=== PATIENT | male | born 1955 | race Hispanic/Latino ===

== ENCOUNTER 2019-10-08 06:20 | Outpatient (CLI) | payer BC ==
[2019-10-08 10:17] LABS: #Lymphocytes 1.6 thou/uL (1.20-3.40); #Neutrophils 3.9 thou/uL (1.40-6.50); %Basophils 0.4 % (0.0-1.0); %Eosinophils 4.6 % (0.0-10.0); %Lymphocytes 25.7 % (21.0-51.0); %Monocytes 8.6 % (0.0-10.0); %Neutrophils 60.7 % (42.0-75.0); Hemoglobin 15.6 g/dL (14.0-18.0); Manual Diff?? NO; Mean Corpuscular HGB CONC 33.7 g/dL (32.0-36.0); Mean Corpuscular Hemoglobin 30.7 pg (27.0-31.0); Mean Corpuscular Volume 90.9 fL (78.0-98.0); Platelet Count 173 thou/uL (130-400); RBC Distribution Width 12.1 % (11.5-14.5); Red Blood Cell (RBC) Count 5.08 mill/uL (4.70-6.10); White Blood Cell (WBC) Count 6.4 thou/uL (4.8-10.8)
[2019-10-08 10:18] LABS: #Eosinphils 0.3 thou/uL (0.0-0.7); #Monocytes 0.5 thou/uL (0.11-0.59)
[2019-10-08 11:11] LABS: Albumin 4.5 g/dL (3.4-4.8)
[2019-10-08 11:12] LABS: Chloride 105 mmol/L (98-107); Potassium 3.9 mmol/L (3.5-5.1); Sodium 139 mmol/L (136-145)
[2019-10-08 11:13] LABS: Calcium 9.3 mg/dL (7.8-10.44)
[2019-10-08 11:14] LABS: Globulin 2.6 g/dL (2.4-3.5); Glucose 97 mg/dL (80-115); Protein, Total 7.1 g/dL (5.8-8.1)
[2019-10-08 11:15] LABS: Anion Gap 7 mmol/L (10-20); Bilirubin, Total 0.5 mg/dL (0.2-1.2); Carbon Dioxide 31 mmol/L (23-31)
[2019-10-08 11:17] LABS: Alkaline Phosphatase 61 U/L (40-110); Calc. Creatinine Clearance 0 mL/min (70-130); Estimated GFR-MDRD 86
[2019-10-08 11:18] LABS: BUN (Urea Nitrogen) 18 mg/dL (8.4-25.7)
[2019-10-08 11:19] LABS: AST (SGOT) 24 U/L (5-34)
[2019-10-08 11:20] LABS: ALT (SGPT) 36 U/L (8-55)
--- NOTE | 2019-10-09 14:09 | EKG ---
Test Reason : Blood Pressure : / mmHG Vent. Rate : 060 BPM Atrial Rate : 060 BPM P-R Int : 176 ms QRS Dur : 090 ms QT Int : 432 ms P-R-T Axes : 049 051 060 degrees QTc Int : 432 ms Normal sinus rhythm Normal ECG Confirmed by HUMERA WRIGHT, DR. Aguilar ([id number]) on 10/09/2019 2:09:00 PM Referred By: MARC Confirmed By:DR. Lauren GRUBBS MD
== END 2019-10-08 06:21 | disposition home or self-care (01) ==
LOC: LABBT 06:20
PROVIDERS: ATTEND Surgery
DX: Z01.818 Encounter for other preprocedural examination (principal); K43.2 Incisional hernia without obstruction or gangrene
CPT/HCPCS: 80053; 85025; 93005; 93010

== ENCOUNTER 2019-10-09 09:50 | Inpatient (IN) | payer BC ==
[2019-10-08 09:16] VITALS: BMI 28.1
[2019-10-09] MEDS ORDERED: diphenhydrAMINE 50 MG/ML VIAL ONE (10:14)
[2019-10-09] MEDS ORDERED: PROPOFOL 200 MG/20 ML VIAL ONE (10:14)
[2019-10-09] MEDS ORDERED: Rocuronium Bromide 10 MG/ML (10ML VIAL) ONE (10:14)
[2019-10-09] MEDS ORDERED: Glycopyrrolate 0.2 MG/ML 5 ML SYRINGE ONE (10:14)
[2019-10-09] MEDS ORDERED: Fentanyl 100 MCG/2 ML VIAL ONE ×2 (10:14→13:39)
[2019-10-09] MEDS ORDERED: Ondansetron PF 4 MG/2 ML Vial ONE (10:14)
[2019-10-09] MEDS ORDERED: Ketorolac Tromethamine 30 MG/ML VIAL ONE (10:14)
[2019-10-09] MEDS ORDERED: Bupivacaine 0.25% HCL 30 ML VIAL ONE (12:09)
[2019-10-09] MEDS ORDERED: Lidocaine 1% w/Epinephrine 1:100K 20 ML VIAL ONE (12:09)
[2019-10-09] MEDS ORDERED: SUGAMMADEX SODIUM 200 MG/2 ML VIAL ONE (13:16)
[2019-10-09] MEDS ORDERED: Morphine 2 MG/ML SYRINGE SLOW IVP PRN (13:23)
[2019-10-09] MEDS ORDERED: HYDROcodone/Acetaminophen 10/325 mg Tablet PO PRN ×2 (13:23)
[2019-10-09] MEDS ORDERED: Promethazine HCl 25 MG/ML VIAL IM PRN ×2 (13:23→13:28)
[2019-10-09] MEDS ORDERED: Dextrose 50% Abboject 50 ML SYRINGE SLOW IVP PRN (13:23)
[2019-10-09] MEDS ORDERED: Morphine 4 MG/ML VIAL SLOW IVP PRN (13:23)
[2019-10-09] MEDS ORDERED: hydrALAZINE 20 MG/ML VIAL SLOW IVP PRN (13:23)
[2019-10-09] MEDS ORDERED: Ondansetron PF 4 MG/2 ML Vial IVP PRN (13:23)
[2019-10-09] MEDS ORDERED: Dextrose 5% in Water 1,000 ML IV PRN (13:23)
[2019-10-09] MEDS ORDERED: Ondansetron HCl/PF 4 MG/2 ML Vial IVP PRN (13:28)
[2019-10-09] MEDS ORDERED: Meperidine HCl/PF 25 MG/ML VIAL SLOW IVP PRN (13:28)
[2019-10-09] MEDS ORDERED: Meperidine HCl/PF 25 MG/ML VIAL ONE (13:46)
[2019-10-09] MEDS ORDERED: Sodium Chloride For Inhalation 0.9% 3 ML NEB ONE (13:50)
[2019-10-09] MEDS ORDERED: cefOXitin 2 GM in Sodium Chloride 0.9% 100 ML IVPB SCH ×2 (14:00→20:00)
--- NOTE | 2019-10-09 15:08 | OP ---
DATE OF PROCEDURE: 10/09/2019 PREOPERATIVE DIAGNOSIS: Incisional ventral hernia. PROCEDURE PERFORMED: Laparoscopic ventral hernia repair with mesh. INDICATIONS: This is a 64-year-old male, who had a previous appendectomy done in [place], developed an incisional hernia. FINDINGS: Incarcerated small bowel with a 3 cm defect in right lower quadrant, 11.5 cm piece of PROCEED mesh used. DESCRIPTION OF PROCEDURE: After informed consent was obtained, the patient was taken to the operating room and given general endotracheal anesthesia. He was placed in supine position. Abdomen was prepped and draped in usual fashion. Local anesthesia was infiltrated subcutaneously and deep. 12 mm incision was performed in left flank. Veress needle was inserted. Drop test was performed. Pneumoperitoneum was created to a volume of 2 L of carbon dioxide. Utilizing a bladeless 12 mm trocar and 0-degree laparoscope, direct visual entry into the abdominal cavity was performed. Pneumoperitoneum was created to a pressure of 15 mmHg, and the patient placed supine. His two 5 mm ports were placed in left lateral abdomen. A laparoscopic lysis of adhesions was performed using Metzenbaum scissors. The small bowel was incarcerated within this defect. It is very tedious dissection, appeared to be able to get it all out without enterotomy. Then, hemostasis was assured. The defect was closed with a running 0 PDS suture. Then, this was reinforced with an 11.4 cm circular PROCEED mesh. 0 Ethibond was placed in 4 quadrants. It was hydrated, rolled, and inserted intra-abdominally, then the sutures were grasped individually utilizing a GraNee needle to position the mesh optimally. This was then sutured down, further secured with the SecureStrap Tacker. Hemostasis was assured. Trocars and retractors were removed. The skin was closed with interrupted 4-0 Rapide. Dermabond was applied. The patient tolerated the procedure well, transferred to Recovery in good condition. Sponge and needle count verified were correct x2. Job ID: [id number]
[2019-10-09] MEDS: D5 1/2 NS w/20 mEq KCL 1,000 ML IV SCH (15:45)
[2019-10-09] MEDS: Ketorolac Tromethamine 30 MG/ML VIAL IVP SCH (17:18)
[2019-10-09] MEDS: Famotidine/PF 20 mg/2ml Vial SLOW IVP SCH (20:41)
[2019-10-09] MEDS: cefOXitin Sodium/Dextrose,Iso 2 GM in Premix Bag 1 BAG IVPB SCH (20:41)
[2019-10-09] MEDS: Famotidine 20 MG TAB PO SCH (20:42)
[2019-10-10] MEDS: D5 1/2 NS w/20 mEq KCL 1,000 ML IV SCH ×2 (00:25→09:22)
[2019-10-10] MEDS: Ketorolac Tromethamine 30 MG/ML VIAL IVP SCH ×2 (00:25→05:02)
[2019-10-10 04:43] VITALS: TEMP 98.2
[2019-10-10] MEDS: cefOXitin Sodium/Dextrose,Iso 2 GM in Premix Bag 1 BAG IVPB SCH (05:01)
[2019-10-10 06:07] LABS: #Eosinphils 0.2 thou/uL (0.0-0.7); #Lymphocytes 1.9 thou/uL (1.20-3.40); #Monocytes 0.8 thou/uL (0.11-0.59); #Neutrophils 4.1 thou/uL (1.40-6.50); %Basophils 0.2 % (0.0-1.0); %Eosinophils 3.4 % (0.0-10.0); %Lymphocytes 27.4 % (21.0-51.0); %Monocytes 11.3 % (0.0-10.0); %Neutrophils 57.6 % (42.0-75.0); Hemoglobin 13.8 g/dL (14.0-18.0); Mean Corpuscular HGB CONC 33.7 g/dL (32.0-36.0); Mean Corpuscular Hemoglobin 30.7 pg (27.0-31.0); Mean Platelet Volume 7.4 fL (7.4-10.4); Platelet Count 164 thou/uL (130-400); RBC Distribution Width 11.9 % (11.5-14.5); White Blood Cell (WBC) Count 7.1 thou/uL (4.8-10.8)
[2019-10-10 06:27] LABS: Anion Gap 9 mmol/L (10-20); BUN (Urea Nitrogen) 8 mg/dL (8.4-25.7); Calc. Creatinine Clearance 89 mL/min (70-130); Calcium 8.2 mg/dL (7.8-10.44); Carbon Dioxide 26 mmol/L (23-31); Chloride 107 mmol/L (98-107); Estimated GFR-MDRD Greater than 90; Glucose 124 mg/dL (80-115); Potassium 3.9 mmol/L (3.5-5.1); Sodium 138 mmol/L (136-145)
[2019-10-10 07:29] VITALS: BP 107/66
[2019-10-10] MEDS ORDERED: Enoxaparin Sodium 40 MG/0.4 ML SYRINGE SC SCH (09:00)
[2019-10-10] MEDS: Famotidine 20 MG TAB PO SCH (09:17)
[2019-10-10] MEDS: Famotidine/PF 20 mg/2ml Vial SLOW IVP SCH (09:22)
--- NOTE | 2019-10-10 16:16 | DIS ---
DATE OF ADMISSION: 10/09/2019 DATE OF DISCHARGE: 10/10/2019 DISCHARGE DIAGNOSIS: Incisional ventral hernia. PROCEDURES DURING ADMISSION: Laparoscopic ventral hernia repair with mesh. HOSPITAL COURSE: The patient was admitted, given IV antibiotics, taken to the operating room, where he underwent a laparoscopic repair of an incisional hernia in the right lower quadrant. The small bowel was intimately involved in this hernia and incarcerated and required quite a delicate dissection to reduce, so he was watched overnight. This morning, he is doing fine. He is tolerating a regular diet. His pain is controlled on p.o. medications. He is discharged home on hydrocodone and Zofran. He will follow up with me in 2 weeks. Job ID: [id number]
== END 2019-10-10 11:09 | disposition home or self-care (01) | DRG 355 ==
LOC: SDC 09:50 → SURG A 15:37
PROVIDERS: ADMIT Surgery; ATTEND Surgery
PROC: 0WUF4JZ Supplement Abdominal Wall with Synthetic Substitute, Percutaneous Endoscopic Approach (ICD-10-PCS; principal; 2019-10-09)
DX: K43.0 Incisional hernia with obstruction, without gangrene (principal); E78.5 Hyperlipidemia, unspecified; I10 Essential (primary) hypertension; E11.9 Type 2 diabetes mellitus without complications; E03.9 Hypothyroidism, unspecified; Z87.442 Personal history of urinary calculi; Z79.899 Other long term (current) drug therapy
CPT/HCPCS: 36415; 80048; 80053; 85025; 93005; J0131; J0690; J0694; J1200; J1650; J1885; J2175; J2405; J2704; J3010; S0020; S0028

== ENCOUNTER 2023-06-28 07:48 | Outpatient (CLI) | payer BC | END 2023-06-28 07:49 | disposition home or self-care (01) | LOC: ULT 07:48 | PROVIDERS: ATTEND Family Medicine | DX: R10.11 Right upper quadrant pain (principal); K76.0 Fatty (change of) liver, not elsewhere classified; K76.89 Other specified diseases of liver | CPT/HCPCS: 76705 ==

== ENCOUNTER 2023-07-21 13:13 | Outpatient (CLI) | payer BC | END 2023-07-21 13:14 | disposition home or self-care (01) | LOC: NM 13:13 | PROVIDERS: ATTEND Family Medicine | DX: R10.11 Right upper quadrant pain (principal) | CPT/HCPCS: 78227; A9537 ==